=== PATIENT | female | born 2000 | race Caucasian/White ===

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

== ENCOUNTER → 2021-12-02 | Outpatient (CLI) | payer OTHER ==
[~2021-12-02] MED LIST changes: -LIDOCAINE 1% MDV 20ML VIAL SQ PRN
[2021-12-02 08:44] LABS: BASO # 0.1 10^3/uL (0.0-0.2); BASO % 0.7 % (0.0-1.0); EOS # 0.3 10^3/uL (0.0-0.5); EOS % 4.7 % (0.0-3.0); HEMATOCRIT 41.4 % (36.0-47.0); HEMOGLOBIN 14.4 g/dl (12.0-15.5); LYMPH # 2.3 10^3/uL (1.5-5.0); MEAN CORPUSCULAR HEMOGLOBIN 31.4 pg (27.0-33.0); MEAN CORPUSCULAR HGB CONC 34.8 g/dl (32.0-36.5); MEAN CORPUSCULAR VOLUME 90.2 fl (80.0-96.0); MONO # 0.6 10^3/uL (0.0-0.8); MONO % 7.7 % (2.0-8.0); NEUTROPHILS # 3.9 10^3/uL (1.5-8.5); NEUTROPHILS % 54.5 % (36.0-66.0); PLATELET COUNT, AUTOMATED 279 10^3/uL (150-450); RED BLOOD COUNT 4.59 10^6/uL (4.00-5.40); WHITE BLOOD COUNT 7.2 10^3/uL (4.0-10.0)
[2021-12-02 09:00] LABS: ALBUMIN 4.1 GM/DL (3.2-5.2); ALT/SGPT 13 U/L (12-78); BILIRUBIN,TOTAL 0.6 MG/DL (0.2-1.0); BLOOD UREA NITROGEN 11 MG/DL (7-18); CALCIUM LEVEL 9.1 MG/DL (8.5-10.1); CARBON DIOXIDE LEVEL 24 MEQ/L (21-32); CHLORIDE LEVEL 111 MEQ/L (98-107); FERRITIN 33 NG/ML (8-252); FREE T4 0.94 NG/DL (0.78-1.33); GLUCOSE, FASTING 91 MG/DL (70-100); IRON (FE) 156 UG/DL (50-170); PERCENT SATURATION 64.5 % (13.2-45.0); POTASSIUM SERUM 4.2 MEQ/L (3.5-5.1); SODIUM LEVEL 138 MEQ/L (136-145); TOTAL IRON BINDING CAPACITY 242 UG/DL (250-450)
[2021-12-02 09:44] LABS: TOTAL 25(OH) VITAMIN D 13.7 NG/ML (30.0-100.0); VITAMIN B12 LEVEL 241 PG/ML
[2021-12-02 09:45] LABS: FOLATE 11.3 NG/ML
== END ==
LOC: M LAB 07:54
PROVIDERS: ATTEND Family Medicine
DX: R53.83 Other fatigue (principal)

== ENCOUNTER → 2025-03-09 | Outpatient (CLI) | payer OTHER ==
[2025-03-09 12:43] LABS: BASO # 0.1 10^3/uL (0.0-0.2); BASO % 0.9 % (0.0-1.0); EOS # 0.3 10^3/uL (0.0-0.5); EOS % 3.9 % (0.0-3.0); LYMPH # 1.6 10^3/uL (1.5-5.0); LYMPH % 25.9 % (24.0-44.0); MONO # 0.4 10^3/uL (0.0-0.8); MONO % 5.5 % (2.0-8.0); NEUTROPHILS # 4.0 10^3/uL (1.5-8.5); NEUTROPHILS % 63.5 % (36.0-66.0); PLATELET COUNT, AUTOMATED 278 10^3/uL (150-450)
[2025-03-09 13:17] LABS: ALT/SGPT 12.0 U/L (7.0-40); AST/SGOT 10.0 U/L (<34); CALCIUM LEVEL 9.1 MG/DL (8.5-10.1); CARBON DIOXIDE LEVEL 22.0 MMOL/L (20-31); CHLORIDE LEVEL 110.0 MMOL/L (98-107); CREATININE FOR GFR 0.97 MG/DL (0.55-1.30); GLOMERULAR FILTRATION RATE 84.2 (>60); IRON (FE) 106.0 UG/DL (50-170); PERCENT SATURATION 33.4 % (13.2-45.0); POTASSIUM SERUM 4.4 MMOL/L (3.5-5.1); SODIUM LEVEL 140.0 MMOL/L (136-145)
[2025-03-09 13:18] LABS: TOTAL 25(OH) VITAMIN D 20.8 NG/ML (20.0-100.0)
[2025-03-09 13:19] LABS: FREE T4 1.03 NG/DL (0.89-1.76); VITAMIN B12 LEVEL 328.0 PG/ML (211-911)
[2025-03-12 14:01] LABS: UNITSIGA FOR GLIADIN IGA 1.4 U/mL (<15.0); UNITSIGG FOR GLIADIN IGG < 1.0 U/mL (<15.0)
== END ==
LOC: M LAB 11:47
PROVIDERS: ATTEND Family Medicine
DX: R53.83 Other fatigue (principal)

== ENCOUNTER → 2025-03-28 | Outpatient (CLI) | payer OTHER | LOC: M PLAIMG 09:47 | PROVIDERS: ATTEND Otolaryngology | DX: J32.0 Chronic maxillary sinusitis (principal) ==

== ENCOUNTER 2025-05-21 09:46 | Day surgery (SDC) | payer OTHER ==
[~2025-05-21] VITALS: Ht 154.9 cm; Wt 67.3 kg
[~2025-05-21 09:46] MED LIST changes: +LEXA1TAB PO; +SPIR50TA4 PO; +TOPI-21 PO
[2025-05-21] MEDS ORDERED: LR 1,000 ML IV SCH (11:05)
[2025-05-21] MEDS ORDERED: ROCURONIUM BROMIDE 50MG/5ML VIAL As Ordered ONE (11:17)
[2025-05-21] MEDS ORDERED: LIDOCAINE 2% 100 MG/5 ML SDV (FOR ANES.) As Ordered ONE (11:17)
[2025-05-21] MEDS ORDERED: dexAMETHasone 4 MG/ML 1 ML VIAL As Ordered ONE (11:17)
[2025-05-21] MEDS ORDERED: ONDANSETRON 4MG/2ML VIAL As Ordered ONE (11:17)
[2025-05-21] MEDS ORDERED: dexmedeTOMIDine (4 MCG/ML) 200 MCG/50 ML BTL As Ordered ONE (11:17)
[2025-05-21] MEDS: SCOPOLAMINE 1MG TRANSDERMAL PATCH TOP ONE (11:17)
[2025-05-21] MEDS ORDERED: MIDAZOLAM INJ 2 MG/2 ML VIAL As Ordered ONE (11:18)
[2025-05-21] MEDS: GABAPENTIN 300 MG CAP PO ONE (11:30)
[2025-05-21] MEDS: LIDOCAINE W/EPINEPHrine 1% 20 ML VIAL As Ordered ONE (12:53)
[2025-05-21] MEDS: OXYMETAZOLINE 0.05% NASAL SPRAY As Ordered ONE (12:54)
[2025-05-21] MEDS ORDERED: ACETAMINOPHEN 1000MG/100ML IV BAG As Ordered ONE (13:05)
[2025-05-21] MEDS ORDERED: ONDANSETRON 4MG/2ML VIAL IV PRN (14:05)
[2025-05-21] MEDS ORDERED: MORPHINE 2 MG/ML 1 ML VIAL IV PRN (14:05)
[2025-05-21] MEDS: HYDROMORPHONE HCL 0.5 MG/0.5 ML SYRINGE IV PRN (14:42)
[2025-05-21] MEDS: ONDANSETRON 4MG/2ML VIAL IV PRN (16:20)
[2025-05-21 16:50] VITALS: BP 148/89; TEMP 97.2; O2SAT 95
== END 2025-05-21 17:00 | disposition home or self-care (01) ==
LOC: M SDC 09:46
PROVIDERS: ATTEND Otolaryngology
DX: J32.8 Other chronic sinusitis (principal); J34.2 Deviated nasal septum; J34.89 Other specified disorders of nose and nasal sinuses; F32.A Depression, unspecified; Z79.899 Other long term (current) drug therapy; Z88.8 Allergy status to other drugs, medicaments and biological substances
CPT/HCPCS: 30520; 31240; 31267; 81025; 88305; J0131; J1100; J1171; J2250; J2405; J3010